=== PATIENT | female | born 1995 | race American Indian/Alaskan Native ===

== ENCOUNTER 2016-11-10 20:42 | Outpatient (CLI) | payer MEDICAID ==
[2016-11-10] MEDS ORDERED: LACTATED RINGERS 500 ML IV ONE (20:49)
[2016-11-10 21:20] VITALS: BP 139/82
== END 2016-11-10 23:01 | disposition home or self-care (01) ==
LOC: TRG 20:42
PROVIDERS: ATTEND Obstetrics & Gynecology
DX: O47.03 False labor before 37 completed weeks of gestation, third trimester (principal); Z3A.35 35 weeks gestation of pregnancy
CPT/HCPCS: 59025; J7120

== ENCOUNTER 2016-11-14 20:44 | Outpatient (CLI) | payer MEDICAID ==
[2016-11-14 20:59] VITALS: BP 126/65
--- NOTE | 2016-11-14 22:03 | Progress Note ---
Assessment and Plan A: at 35 weeks, 6 days gestation. False labor. BPP 8/. P: Discharge patient home. Follow up at [facility]. Daily movement counting advised. Subjective - Subjective Date of service: 11/14/16 Principal diagnosis: at 35 weeks, 6 days gestation; false labor Interval history: 21 year old female presents to triage at 35 weeks, 6 days gestation with contractions for 15 minutes this evening that resolved. Patient denies vaginal bleeding or leaking of fluid. Patient reports good movement. Patient has diabetes and states her blood sugars have been well controlled. NST nonreactive. BPP 8. Cervix 1/thick/high. No contractions. Not in labor. Patient reports: contractions (patient states contractions have resolved), no loss of fluid, no vaginal bleeding Objective - Vital Signs Vital Signs: Vital Signs - 12hr 11/14/16 11/14/16 11/14/16 21:01 21:08 21:11 Temperature 97.8 F Pulse Rate 82 81 Respiratory 20 Rate Blood Pressure 126/65 O2 Sat by Pulse 97 Oximetry 11/14/16 11/14/16 11/14/16 21:13 21:18 21:23 Temperature Pulse Rate 86 84 83 Respiratory Rate Blood Pressure O2 Sat by Pulse 98 97 96 Oximetry 11/14/16 11/14/16 11/14/16 21:28 21:33 21:38 Temperature Pulse Rate 82 86 79 Respiratory Rate Blood Pressure O2 Sat by Pulse 97 97 97 Oximetry 11/14/16 11/14/16 11/14/16 21:43 21:49 21:54 Temperature Pulse Rate 81 86 83 Respiratory Rate Blood Pressure O2 Sat by Pulse 96 96 97 Oximetry 11/14/16 11/14/16 21:59 22:01 Temperature Pulse Rate 84 80 Respiratory Rate Blood Pressure O2 Sat by Pulse 97 0 L Oximetry - Exam Abdomen: Present: normal appearance, soft. Absent: distention, tenderness, guarding FHR: other (nonreactive NST; BPP 8/8) Uterine Contraction Monitor Mode: External Cervical Dilatation: 1 station: high Uterine Contraction Pattern: Absent Extremities: normal
--- NOTE | 2016-11-15 07:25 | Ultrasound Report ---
ULTRASOUND BIOPHYSICAL PROFILE: History: Nonreactive stress test, well being Technique: Transabdominal ultrasound with Doppler interrogation. 2 - breathing movements 2 - movements 2 - posture and tone 2 - Qualitative amniotic fluid volume 8 - TOTAL SCORE OF POSSIBLE 8 Heart Rate (bpm) 170
== END 2016-11-14 22:05 | disposition home or self-care (01) ==
LOC: TRG 20:44
PROVIDERS: ATTEND Obstetrics & Gynecology
DX: O62.9 Abnormality of forces of labor, unspecified (principal); O47.03 False labor before 37 completed weeks of gestation, third trimester; Z3A.35 35 weeks gestation of pregnancy
CPT/HCPCS: 76819